=== PATIENT | female | born 1955 | race African-American/Black ===

== ENCOUNTER 2017-05-28 11:22 | Emergency (ER) | payer MEDICARE, MEDICAID ==
[~2017-05-28] VITALS: Ht 167.6 cm; Wt 80.0 kg
[2017-05-28] MEDS ORDERED: METF500T4 PO (11:34)
[2017-05-28] MEDS ORDERED: PHEN100C4 PO (11:34)
[2017-05-28] MEDS ORDERED: KEPP500 PO (11:34)
[2017-05-28] MEDS ORDERED: LORA1TAB PO (11:34)
[2017-05-28] MEDS ORDERED: MORPHINE SULFATE 4 MG/ML CPJ (NOT FOR IM USE) IV STA (15:21)
[2017-05-28] MEDS ORDERED: SODIUM CHLORIDE 0.9% 1,000 ML IV ONE (15:21)
[2017-05-28] MEDS ORDERED: ONDANSETRON HCL 4MG/2ML VIAL IV STA (15:21)
[2017-05-28] MEDS ORDERED: FAMOTIDINE 20MG/2ML VIAL IV STA (15:21)
[2017-05-28 16:37] LABS: HEMATOCRIT. 34.1 % (36.0-48.0); HEMOGLOBIN. 10.9 g/dL (12.0-16.0); MEAN CORPUSCULAR HEMOGLOBIN 26.2 pg (28.0-32.0); MEAN CORPUSCULAR VOLUME 81.8 fL (81.0-99.0); MEAN PLATELET VOLUME 7.8 fl (7.4-10.4); PLATELET 309 x1000/uL (130-400); RED BLOOD CELL COUNT 4.17 mill/uL (4.2-5.4); RED CELL DISTRIBUTION WIDTH 16.9 % (11.6-14.6)
[2017-05-28 16:38] LABS: CHLORIDE 100 mEq/L (98-107)
[2017-05-28 16:41] LABS: INR 1.1; PROTHROMBIN TIME 10.9 sec (9.4-11.6)
[2017-05-28 16:43] LABS: CARBON DIOXIDE 25 mEq/L (21-32); ETHANOL BLOOD < 10 mg/dL
[2017-05-28 16:50] LABS: TROPONIN I < 0.02 ng/mL (0.00-0.04)
[2017-05-28] MEDS ORDERED: ONDANSETRON HCL 4MG/2ML VIAL IM ONE (17:00)
[2017-05-28] MEDS ORDERED: MORPHINE SULFATE 10 MG/ML CPJ IM ONE (17:00)
[2017-05-28 17:09] LABS: ATYPICAL LYMPHOCYTES 1; PLATELET ESTIMATE NORMAL
[2017-05-28] MEDS ORDERED: MAGNESIUM/ALUMINUM HYDROXIDE/SIMETHICONE 30ML UDC PO ONE (18:30)
[2017-05-28] MEDS ORDERED: ONDANSETRON 4MG ODT PO ONE (20:15)
[2017-05-28 22:45] VITALS: BP 155/65
== END 2017-05-28 23:44 | disposition home or self-care (01) ==
LOC: EDBD 11:22 → ER 11:52 → CANBEDREQ 21:21 → ER 23:44
DX: K44.9 Diaphragmatic hernia without obstruction or gangrene (principal); K29.70 Gastritis, unspecified, without bleeding; E11.9 Type 2 diabetes mellitus without complications; Z90.49 Acquired absence of other specified parts of digestive tract
CPT/HCPCS: 36415; 71010; 74176; 80053; 80185; 83690; 83880; 84484; 85025; 85610; 93005; 96361; 96374; 96375; 99285; C1893; G0482; J2270; J2405; J3490; J7030; Q0162